=== PATIENT | female | born 1955 | race Hispanic/Latino ===

== ENCOUNTER 2020-02-19 21:16 | Observation (INO) | payer OTHER ==
[2020-02-19 22:16] LABS: Absolute Lymphocytes (CBC) 3.3 K/uL (0.7-4.9); Hematocrit 38.1 % (36.0-45.0); Lymphocytes % 38.3 % (15.3-44.8); RBC Red Blood Cell Count 4.43 M/uL (3.86-4.86)
[2020-02-19 22:30] LABS: ALT/SGPT 23 U/L (12-78); AST/SGOT 19 U/L (15-37); Alkaline Phosphatase 71 U/L (45-117); BUN Blood Urea Nitrogen 18 mg/dL (7-18); Bicarbonate 25 mmol/L (21-32); Bilirubin Direct 0.1 mg/dL (0-0.2); Bilirubin Total 0.3 mg/dL (0.2-1.0); Glucose Level 119 mg/dL (74-106); Magnesium 1.6 mg/dL (1.8-2.4); NT PRO-BNP 19 pg/mL (<125); Potassium 3.6 mmol/L (3.5-5.1); Protein, Total 7.9 g/dL (6.4-8.2); Sodium Level 139 mmol/L (136-145); Troponin (Emerg Dept Use Only) < 0.02 ng/mL (0.0-0.045)
[2020-02-19] MEDS ORDERED: ASPIRIN 81 MG CHEWABLE TABLET ONE (22:40)
--- NOTE | 2020-02-19 23:08 | EDPHYS ---
Physician Documentation [facility] Name: Samreen Rushing Age: 64 yrs Sex: Female : 1955 Arrival Date: 02/19/2020 Time: 21:20 Bed 16 Private MD: ED Physician Magdaleno Hooker HPI: 02/18 22:04 This 64 yrs old Female presents to ER via Ambulatory with complaints of Chest cp Tightness. 22:05 The patient or guardian reports chest pain that is located primarily in the substernal cp area. 22:05 Onset: 1 week(s) ago, intermittent. The pain does not radiate. Associated signs and cp symptoms: Pertinent negatives: abdominal pain, cough, lower extremity pain, lower extremity swelling, palpitations, shortness of breath, syncope. The chest pain is described as a pressure. Duration: The patient or guardian reports multiple episodes, that are intermittent, with no pattern. Modifying factors: the symptoms are aggravated by nothing. Severity of pain: in the emergency department the pain has resolved and did so while in waiting room. Historical: - Allergies: 21:40 No Known Allergies; rr5 - Home Meds: 21:40 clonidine HCl Oral [Active]; Glipizide Oral [Active]; Lisinopril Oral [Active]; Aspirin rr5 Oral [Active]; Metformin Oral [Active]; Lovastatin Oral [Active]; - PMHx: 21:40 Hypertension; Diabetes - NIDDM; Hyperlipidemia; rr5 - PSHx: 21:40 Hysterectomy; vascular surgery; rr5 - Immunization history:: Adult Immunizations up to date. - Social history:: Smoking status: unknown Patient/guardian denies using alcohol, street drugs, tobacco products. ROS: 22:10 Constitutional: Negative for body aches, chills, poor PO intake. cp 22:10 Eyes: Negative for injury, pain, redness, and discharge. cp 22:10 ENT: Negative for drainage from ear(s), ear pain, sore throat, difficulty swallowing, difficulty handling secretions. 22:10 Cardiovascular: Positive for chest pain, Negative for edema, palpitations. 22:10 Respiratory: Negative for cough, shortness of breath, wheezing. 22:10 Abdomen/GI: Negative for abdominal pain, nausea, vomiting, and diarrhea. 22:10 Back: Negative for radiated pain. 22:10 Skin: Negative for rash. 22:10 Neuro: Negative for altered mental status, dizziness, headache, numbness, syncope, weakness. 22:10 All other systems are negative. Exam: 22:15 Constitutional: The patient appears in no acute distress, alert, awake, cp non-diaphoretic, non-toxic, well developed, well nourished. 22:15 Head/Face: Normocephalic, atraumatic. cp 22:15 Eyes: Periorbital structures: appear normal, Conjunctiva: normal, no exudate, no cp injection, Sclera: no appreciated abnormality, Lids and lashes: appear normal, bilaterally. 22:15 ENT: External ear(s): are unremarkable, Nose: is normal, Mouth: is normal, Posterior pharynx: Airway: no evidence of obstruction, patent. 22:15 Neck: ROM/movement: is normal, is supple, without pain, no range of motions limitations, no nuchal rigidity. 22:15 Chest/axilla: Inspection: normal, Palpation: is normal, no crepitus, no tenderness. 22:15 Cardiovascular: Rate: normal, Rhythm: regular, Edema: is not appreciated, JVD: is not appreciated. 22:15 Respiratory: the patient does not display signs of respiratory distress, Respirations: normal, no use of accessory muscles, no retractions, labored breathing, is not present, Breath sounds: are clear throughout, no decreased breath sounds, no stridor, no wheezing. 22:15 Abdomen/GI: Inspection: abdomen appears normal, Bowel sounds: active, all quadrants, Palpation: abdomen is soft and non-tender, in all quadrants. 22:15 Back: pain, is absent, ROM is normal. 22:15 Skin: no rash present. cp 22:15 Neuro: Orientation: to person, place \T\ time. Mentation: is normal, Cerebellar function: is grossly normal, Motor: moves all fours, strength is normal, Sensation: is normal. 23:50 ECG was reviewed by the Attending Physician. rn Vital Signs: 21:35 BP 139 / 88; Pulse 96; Resp 16; Temp 98.6; Pulse Ox 98% ; Weight 65.77 kg; Height 5 ft. rr5 5 in. (165.10 cm); Pain 8/10; 23:30 BP 135 / 85; Pulse 90; Resp 18; Pulse Ox 100% on R/A; mg2 02/19 00:27 BP 133 / 79; Pulse 89; Resp 18; Temp 98.5; Pulse Ox 100% on R/A; mg2 02/18 21:35 Body Mass Index 24.13 (65.77 kg, 165.10 cm) rr5 MDM: 02/18 21:51 Patient medically screened. cp 23:05 The patient was given aspirin in the Emergency Department. cp 23:05 Data reviewed: vital signs, nurses notes, lab test result(s), EKG, radiologic studies, cp plain films, and as a result, I will admit patient. Test interpretation: by ED physician or midlevel provider: ECG. Counseling: I had a detailed discussion with the patient and/or guardian regarding: the historical points, exam findings, and any diagnostic results supporting the discharge/admit diagnosis, lab results, radiology results, the need for further work-up and treatment in the hospital. Physician consultation: Dereck Smith MD was called at 23:05, was contacted at 23:05, regarding admission, to the telemetry unit. patient's condition. 02/18 21:46 Order name: Basic Metabolic Panel; Complete Time: 22:36 cp 02/18 22:36 Interpretation: Normal except: GLUC 119; GFR 73. cp 02/18 21:46 Order name: CBC with Diff; Complete Time: 22:36 cp 02/18 21:46 Order name: LFT's; Complete Time: 22:36 cp 02/18 21:46 Order name: Magnesium; Complete Time: 22:36 cp 02/18 21:46 Order name: NT PRO-BNP; Complete Time: 22:36 cp 02/18 21:46 Order name: PT-INR; Complete Time: 22:36 cp 02/18 21:46 Order name: Troponin (emerg Dept Use Only); Complete Time: 22:36 cp 02/18 22:36 Interpretation: Within normal limits: TROPED < 0.02. cp 02/18 23:18 Order name: Basic Metabolic Panel EDMS 02/18 23:18 Order name: Basic Metabolic Panel ED[facility] 02/18 23:18 Order name: CBC with Automated Diff [facility] 02/18 23:18 Order name: CBC with Automated Diff [facility] 02/18 23:18 Order name: Lipid Profile [facility] 02/18 23:18 Order name: Lipid Profile [facility] 02/18 23:18 Order name: Troponin I [facility] 02/18 21:46 Order name: XRAY Chest (1 view); Complete Time: 02:15 cp 02/18 21:46 Order name: EKG; Complete Time: 21:47 cp 02/18 21:46 Order name: Cardiac monitoring; Complete Time: 22:08 cp 02/18 21:46 Order name: EKG - Nurse/Tech; Complete Time: 22:08 cp 02/18 21:46 Order name: IV Saline Lock; Complete Time: 22:08 cp 02/18 21:46 Order name: Labs collected and sent; Complete Time: 22:08 cp 02/18 21:46 Order name: O2 Per Protocol; Complete Time: 22:08 cp 02/18 21:46 Order name: O2 Sat Monitoring; Complete Time: 22:08 cp 02/18 23:18 Order name: CONS Physician Consult [facility] 02/18 23:18 Order name: Heart Healthy [facility] 02/18 23:18 Order name: Echo with Doppler [facility] 02/18 23:18 Order name: EKG Electrocardiogram [facility] 02/18 23:18 Order name: EKG Electrocardiogram [facility] 02/18 23:18 Order name: Troponin I; Complete Time: 02:15 [facility] 02/18 23:18 Order name: Troponin I [facility] EC:50 Rate is 91 beats/min. Rhythm is regular. QRS [place] is Normal. MD interval is normal. QRS rn interval is normal. QT interval is normal. No Q waves. T waves are Normal. No ST changes noted. Clinical impression: Normal ECG. Interpreted by me. Reviewed by me. Administered Medications: 22:49 Drug: Aspirin Chewable Tablet 324 mg Route: PO; mg2 02/19 00:28 Follow up: Response: No adverse reaction mg2 Disposition: 02:14 Co-signature as Attending Physician, Magdaleno Hooker MD. rn Disposition: 02/19/20 23:08 Hospitalization ordered by Dereck Smith for Observation. Preliminary diagnosis is Chest pain, unspecified. - Bed requested for Telemetry/MedSurg (observation). - Status is Observation. mg2 - Condition is Stable. - Problem is new. - Symptoms have improved. Signatures: Dispatcher [employer] [facility] Josefa Draper RN RN dw Nieto, Roman, MD MD rn John Thakur PA PA cp Waqas Arteaga, LILIANA RN mg2 Federico Vail RN RN rr5 Corrections: (The following items were deleted from the chart) 00:25 02/18 23:08 Hospitalization Ordered by Dereck Smith MD for Observation. Preliminary dw diagnosis is Chest pain, unspecified. Bed requested for Telemetry/MedSurg (observation). Status is Observation. Condition is Stable. Problem is new. Symptoms have improved. cp 02/19 01:19 00:25 02/19/2020 23:08 Hospitalization Ordered by Dereck Smith MD for Observation. mg2 Preliminary diagnosis is Chest pain, unspecified. Bed requested for Telemetry/MedSurg (observation). Status is Observation. Condition is Stable. Problem is new. Symptoms have improved. dw
--- NOTE | 2020-02-19 23:08 | ER ---
Nurse's Notes [facility] Name: Samreen Rushing Age: 64 yrs Sex: Female : 1955 Arrival Date: 02/19/2020 Time: 21:20 Bed 16 Private MD: Diagnosis: Chest pain, unspecified Presentation: 02/18 21:35 Chief complaint: Patient states: chest tightness non radiating,on and off, started a rr5 week ago. but this evening it gets real bad. Coronavirus screen: Proceed with normal triage. Ebola Screen: Patient negative for fever greater than or equal to 101.5 degrees Fahrenheit, and additional compatible Ebola Virus Disease symptoms Patient denies exposure to infectious person. Patient denies travel to an Ebola-affected area in the 21 days before illness onset. Initial Sepsis Screen: Does the patient meet any 2 criteria? No. Patient's initial sepsis screen is negative. Does the patient have a suspected source of infection? No. Patient's initial sepsis screen is negative. Risk Assessment: Do you want to hurt yourself or someone else? Patient reports no desire to harm self or others. Onset of symptoms was February 13, 2020. 21:35 Method Of Arrival: Ambulatory rr5 21:35 Acuity: JAZMYN 3 rr5 21:35 Note denies shortness of breath, cough, fever. rr5 Historical: - Allergies: 21:40 No Known Allergies; rr5 - Home Meds: 21:40 clonidine HCl Oral [Active]; Glipizide Oral [Active]; Lisinopril Oral [Active]; Aspirin rr5 Oral [Active]; Metformin Oral [Active]; Lovastatin Oral [Active]; - PMHx: 21:40 Hypertension; Diabetes - NIDDM; Hyperlipidemia; rr5 - PSHx: 21:40 Hysterectomy; vascular surgery; rr5 - Immunization history:: Adult Immunizations up to date. - Social history:: Smoking status: unknown Patient/guardian denies using alcohol, street drugs, tobacco products. Screenin/08 00:07 Abuse screen: Denies threats or abuse. Denies injuries from another. Nutritional mg2 screening: No deficits noted. Tuberculosis screening: No symptoms or risk factors identified. Fall Risk IV access (20 points). Assessment: 02/18 22:00 General: Appears in no apparent distress. comfortable, Behavior is calm, cooperative. mg2 Pain: Complains of pain in chest Pain does not radiate. Pain currently is 1 out of 10 on a pain scale. Quality of pain is described as aching, Pain began gradually, 1 week ago Is intermittent. Neuro: Level of Consciousness is awake, alert, obeys commands, Oriented to person, place, time, situation. Cardiovascular: Capillary refill < 3 seconds Patient's skin is warm and dry. Respiratory: Airway is patent Respiratory effort is even, unlabored, Respiratory pattern is regular, symmetrical. GI: No signs and/or symptoms were reported involving the gastrointestinal system. : No signs and/or symptoms were reported regarding the genitourinary system. EENT: No signs and/or symptoms were reported regarding the EENT system. Derm: Skin is intact, is healthy with good turgor, Skin is pink, warm \T\ dry. normal. Musculoskeletal: Circulation, motion, and sensation intact. Capillary refill < 3 seconds. 23:00 Reassessment: Patient appears in no apparent distress at this time. Patient and/or mg2 family updated on plan of care and expected duration. Pain level reassessed. Patient is alert, oriented x 3, equal unlabored respirations, skin warm/dry/pink. Vital Signs: 21:35 BP 139 / 88; Pulse 96; Resp 16; Temp 98.6; Pulse Ox 98% ; Weight 65.77 kg; Height 5 ft. rr5 5 in. (165.10 cm); Pain 8/10; 23:30 BP 135 / 85; Pulse 90; Resp 18; Pulse Ox 100% on R/A; mg2 02/19 00:27 BP 133 / 79; Pulse 89; Resp 18; Temp 98.5; Pulse Ox 100% on R/A; mg2 02/18 21:35 Body Mass Index 24.13 (65.77 kg, 165.10 cm) rr5 ED Course: 02/18 21:20 Patient arrived in ED. ag3 21:40 Triage completed. rr5 21:40 Arm band placed on left wrist. rr5 21:46 John Thakur PA is PHCP. cp 21:46 Magdaleno Hooker MD is Attending Physician. cp 22:07 XRAY Chest (1 view) In Process Unspecified. EDMS 22:07 Waqas Arteaga, LILIANA is Primary Nurse. mg2 22:20 Inserted saline lock: 20 gauge in right forearm, using aseptic technique. Blood mg2 collected. 22:31 No provider procedures requiring assistance completed. mg2 23:07 Dereck Smith MD is Hospitalizing Provider. cp 02/19 00:07 Patient has correct armband on for positive identification. athletic monitor on. Pulse mg2 ox on. NIBP on. Noise minimized. Warm blanket given. 00:08 Patient admitted, IV remains in place. Patient maintains SpO2 saturation greater than mg2 95% on room air. Administered Medications: 02/18 22:49 Drug: Aspirin Chewable Tablet 324 mg Route: PO; mg2 02/19 00:28 Follow up: Response: No adverse reaction mg2 Outcome: 02/18 23:08 Decision to Hospitalize by Provider. cp 02/19 01:09 Admitted to Med/surg accompanied by nurse, via wheelchair, room 205, with chart, Report mg2 called to LILIANA Saeed Condition: stable Instructed on the need for admit, Demonstrated understanding of instructions. 01:19 Patient left the ED. mg2 Signatures: Dispatcher [employer] EDMS John Thakur PA PA cp Waqas Arteaga, RN RN mg2 Jolanta Brooks ag3 Federico Vail, RN RN rr5
[2020-02-19] MEDS ORDERED: ACETAMINOPHEN 500 MG TAB PO PRN (23:13)
[2020-02-19] MEDS ORDERED: MORPHINE 4 MG/ML SYR IV PRN (23:13)
[2020-02-19] MEDS ORDERED: ALPRAZOLAM 0.25 MG TABLET PO PRN (23:13)
--- NOTE | 2020-02-19 23:20 | RAD REPORT ---
EXAM DESCRIPTION: RAD - Chest Single View - 02/19/2020 10:07 pm CLINICAL HISTORY: CHEST PAIN Chest pain. COMPARISON: No comparisons FINDINGS: Portable technique limits examination quality. The lungs are grossly clear. The heart is normal in size. No displaced fractures. IMPRESSION: No acute intrathoracic process suspected.
[2020-02-20] MEDS ORDERED: ONDANSETRON 4 MG/2 ML VIAL ONE (00:56)
[2020-02-20 02:00] VITALS: BMI 23.3
--- NOTE | 2020-02-20 05:31 | P.HP ---
Certification for Inpatient Patient admitted to: Observation With expected LOS: <2 Midnights Patient will require the following post-hospital care: None Practitioner: I am a practitioner with admitting privileges, knowledge of patient current condition, hospital course, and medical plan of care. Services: Services provided to patient in accordance with Admission requirements found in Title 42 Section 412.3 of the Code of Federal Regulations Patient History Date of Service: 02/19/20 Reason for admission: Chest pain rule out acute coronary syndrome History of Present Illness: Patient is a 64-year-old female came to the hospital with chest discomfort. Patient has done prior medical history of hypertension and diabetes. Patient also with dyslipidemia. Patient denies any family history. Patient does not have any tobacco history. Patient has not had a stress test. Patient states the pain started yesterday. It has been going on off for the last 24 hr. Pain was mainly in the sternal region. Patient has some shortness of breath as well. Patient came to the hospital for further evaluation. In the emergency room, patient's initial troponin and EKG was unremarkable. Patient be admitted to the hospital for further evaluation. Will get an echocardiogram and a stress test. If these are negative possible discharge home later tomorrow Allergies No Known Allergies Allergy (Verified 02/20/20 03:40) Home Medications: Clonidine HCl [Catapres*] 0.1 mg PO TID 02/20/20 Levothyroxine [Synthroid] 50 mcg PO [id number] 02/20/20 Lovastatin 40 mg PO BEDTIME 02/20/20 Metformin HCl [Glucophage] 850 mg PO TID 02/20/20 glipiZIDE [Glucotrol] 10 mg PO BID 02/20/20 lisinopriL [Prinivil] 40 mg PO DAILY 02/20/20 - Past Medical/Surgical History Has patient received pneumonia vaccine in the past: No Diabetic: Yes -: NIDDM -: HTN -: HLD -: Hypothyroid -: Hysterectomy - Family History Mother Medical History: Diabetes - Social History Smoking Status: Never smoker Alcohol use: No CD- Drugs: No Caffeine use: Yes Place of Residence: Home Review of Systems 10-point ROS is otherwise unremarkable Physical Examination - Vital Signs Temperature: 97.7 F Blood Pressure: 122/59 Pulse: 78 Respirations: 18 Pulse Ox (%): 94 - Physical Exam General: Alert, In no apparent distress, Oriented x3 HEENT: Atraumatic, PERRLA, Mucous membr. moist/pink, EOMI, Sclerae nonicteric Neck: Supple, 2+ carotid pulse no bruit, No LAD, Without JVD or thyroid abnormality Respiratory: Clear to auscultation bilaterally, Normal air movement Cardiovascular: Regular rate/rhythm, Normal S1 S2, No murmurs Gastrointestinal: Normal bowel sounds, Soft and benign, Non-distended, No tenderness Musculoskeletal: No clubbing, No swelling, No tenderness Integumentary: No rashes Neurological: Normal gait, Normal speech, Normal strength at 5/5 x4 extr, Normal tone, Sensation intact, Cranial nerves 3-12 intact, Normal affect Lymphatics: No axilla or inguinal lymphadenopathy - Studies Laboratory Data (last 24 hrs) 02/19/20 22:00: PT 11.8, INR 1.00 02/19/20 22:00: WBC 8.5, Hgb 12.7, Hct 38.1, Plt Count 271 02/19/20 22:00: Sodium 139, Potassium 3.6, BUN 18, Creatinine 0.79, Glucose 119 H, Magnesium 1.6 L, Total Bilirubin 0.3, AST 19, ALT 23, Alkaline Phosphatase 71 Assessment & Plan - Problems (Diagnosis) (1) Chest pain, rule out acute myocardial infarction Current Visit: Yes Status: Acute (2) Hypertension Current Visit: Yes Status: Acute (3) Type 2 diabetes mellitus Current Visit: Yes Status: Acute (4) Dyslipidemia Current Visit: Yes Status: Acute (5) Hypokalemia Current Visit: Yes Status: Acute - Plan 1. Serial troponins and EKG 2. Cardiology consultation 3. Echocardiogram and stress test 4. Anti-platelet therapy, anti coagulation, beta-adrian, statin, and O2 as needed 5. IV morphine for pain 6. Nitro p.r.n. 7. Strict blood pressure and blood sugar control 8. GI and DVT prophylaxis Discharge Plan: Home Plan to discharge in: 24 Hours - Advance Directives Does patient have a Living Will: No Does patient have a Durable POA for Healthcare: No - Code Status/Comfort Care Code Status Assessed: Yes Code Status: Full Code Critical Care: No Time Spent Managing PTS Care (In Minutes): 45
[2020-02-20] MEDS: METOPROLOL TAR 50 MG TAB PO SCH ×2 (06:00→12:08)
[2020-02-20 06:05] LABS: Absolute Lymphocytes (CBC) 3.3 K/uL (0.7-4.9); Basophils % 0.7 % (0-1.3); Hematocrit 37.3 % (36.0-45.0); Lymphocytes % 41.3 % (15.3-44.8); RBC Red Blood Cell Count 4.37 M/uL (3.86-4.86)
[2020-02-20 06:30] LABS: BUN Blood Urea Nitrogen 13 mg/dL (7-18); Bicarbonate 27 mmol/L (21-32); Glucose Level 122 mg/dL (74-106); HDL Cholesterol 38 mg/dL (40-60); LDL Cholesterol, Calculated 44 (<130); Potassium 3.3 mmol/L (3.5-5.1); Sodium Level 142 mmol/L (136-145); Troponin I < 0.02 ng/mL (0.0-0.045)
[2020-02-20 08:01] VITALS: O2SAT 98
[2020-02-20] MEDS ORDERED: POTASSIUM 25 MEQ EFFERV TAB PO ONE (08:10)
[2020-02-20] MEDS ORDERED: glipiZIDE 5 MG TAB PO SCH (08:15)
[2020-02-20] MEDS: METFORMIN HCL 850 MG TAB PO SCH ×2 (08:15→12:08)
--- NOTE | 2020-02-20 08:19 | P.DS ---
Discharge Date: 02/20/20 Disposition: ROUTINE DISCHARGE Discharge Condition: GOOD Reason for Admission: Chest pain rule out acute coronary syndrome Consultations: Cardiology - Problems (1) Chest pain, rule out acute myocardial infarction Current Visit: Yes Status: Acute (2) Hypertension Current Visit: Yes Status: Acute (3) Type 2 diabetes mellitus Current Visit: Yes Status: Acute (4) Dyslipidemia Current Visit: Yes Status: Acute (5) Hypokalemia Current Visit: Yes Status: Acute Brief History of Present Illness: Patient is a 64-year-old female came to the hospital with chest discomfort. Patient has done prior medical history of hypertension and diabetes. Patient also with dyslipidemia. Patient denies any family history. Patient does not have any tobacco history. Patient has not had a stress test. Patient states the pain started yesterday. It has been going on off for the last 24 hr. Pain was mainly in the sternal region. Patient has some shortness of breath as well. Patient came to the hospital for further evaluation. In the emergency room, patient's initial troponin and EKG was unremarkable. Patient be admitted to the hospital for further evaluation. Will get an echocardiogram and a stress test. If these are negative possible discharge home later tomorrow Hospital Course: Patient has done well during hospital stay. Patient's echocardiogram and stress test did not reveal any abnormality. At this time patient is stable for discharge with outpatient follow with PCP for further workup for chest discomfort. Return to the emergency room if patient's symptoms worsen. Notify me if any questions over the weekend. Vital Signs/Physical Exam: Temp Pulse Resp BP Pulse Ox 97.7 F 78 18 122/59 L 94 02/20/20 08:15 02/20/20 08:15 02/20/20 08:15 02/20/20 08:15 02/20/20 08:15 General: Alert, In no apparent distress, Oriented x3 Laboratory Data at Discharge: WBC 7.9 K/uL (4.3-10.9) 02/20/20 05:13 Hgb 12.6 g/dL (12.0-15.0) 02/20/20 05:13 Hct 37.3 % (36.0-45.0) 02/20/20 05:13 Plt Count 251 K/uL (152-406) 02/20/20 05:13 PT 11.8 SECONDS (9.5-12.5) 02/19/20 22:00 INR 1.00 02/19/20 22:00 Sodium 142 mmol/L (136-145) 02/20/20 05:13 Potassium 3.3 mmol/L (3.5-5.1) L 02/20/20 05:13 BUN 13 mg/dL (7-18) 02/20/20 05:13 Creatinine 0.63 mg/dL (0.55-1.3) 02/20/20 05:13 Glucose 122 mg/dL (74-106) H 02/20/20 05:13 Magnesium 1.6 mg/dL (1.8-2.4) L 02/19/20 22:00 Total Bilirubin 0.3 mg/dL (0.2-1.0) 02/19/20 22:00 AST 19 U/L (15-37) 02/19/20 22:00 ALT 23 U/L (12-78) 02/19/20 22:00 Alkaline Phosphatase 71 U/L (45-117) 02/19/20 22:00 Troponin I < 0.02 ng/mL (0.0-0.045) 02/20/20 05:13 Triglycerides 148 mg/dL (<150) 02/20/20 05:13 Cholesterol 112 mg/dL (<200) 02/20/20 05:13 HDL Cholesterol 38 mg/dL (40-60) L 02/20/20 05:13 Cholesterol/HDL Ratio 2.95 02/20/20 05:13 Home Medications: Clonidine HCl [Catapres*] 0.1 mg PO TID 02/20/20 Levothyroxine [Synthroid] 50 mcg PO [id number] 02/20/20 Lovastatin 40 mg PO BEDTIME 02/20/20 Metformin HCl [Glucophage] 850 mg PO TID 02/20/20 glipiZIDE [Glucotrol] 10 mg PO BID 02/20/20 lisinopriL [Prinivil] 40 mg PO DAILY 02/20/20 Patient Discharge Instructions: OK TO DC IV AND DC HOME. FOLLOW-UP WITH PRIMARY CARE PROVIDER IN 1-2 WEEKS. FOLLOW-UP WITH CARDIOLOGY IN 1-2 WEEKS. RETURN TO THE ER IF symptoms worsen. CALL or TEXT DR. AMLODOVAR AT [phone] IF ANY QUESTIONS REGARDING HOSPITAL STAY. PLEASE CALL THE FLOOR AT [phone] IF ANY MEDICATION OR NURSING QUESTIONS. Diet: Heart healthy Activity: Fall precautions Time spent managing pt's care (in minutes): 30
[2020-02-20] MEDS ORDERED: REGADENOSON 0.4 MG/5 ML SYR IV ONE (08:34)
[2020-02-20] MEDS ORDERED: ASPIRIN EC 81 MG TAB PO SCH (09:00)
[2020-02-20] MEDS ORDERED: lisinopriL 20 MG TAB PO SCH (09:00)
[2020-02-20] MEDS: cloNIDine HCL 0.1 MG TAB PO SCH ×2 (09:00→12:07)
[2020-02-20] MEDS ORDERED: ENOXAPARIN 40 MG/0.4 ML SQ SCH (09:00)
--- NOTE | 2020-02-20 10:36 | EKG ---
Test Date: 2020-02-19 Test Time: 21:54:33 [employer]: RR MEASUREMENT RESULTS: Intervals: Rate: 91 FL: 144 QRSD: 68 QT: 348 QTc: 428 [place]: P: 44 FL: 144 QRS: 6 T: 34 INTERPRETIVE STATEMENTS: Normal sinus rhythm Normal ECG No previous ECG available for comparison Electronically Signed On 02-20-20 10:34:44 CDT by Samuel Sheffield
--- NOTE | 2020-02-20 11:13 | ECHO ---
HEIGHT: 5 ft 5 in WEIGHT: 140 lb 0 oz DATE OF STUDY: 02/20/[address]: Dereck Smith MD 2-DIMENSIONAL: YES M.MODE: YES DOPPLER: YES COLOR FLOW: YES TDS: PORTABLE: DEFINITY: BUBBLE STUDY: DIAGNOSIS: CHEST PAIN, RULE OUT ACUTE CORNARY SYNDROME CARDIAC HISTORY: CATHERIZATION: NO SURGERY: NO PROSTHETIC VALVE: NO PACEMAKER: NO MEASUREMENTS (cm) DIASTOLIC (NORMALS) SYSTOLIC (NORMALS) IVSd 1.0 (0.6-1.2) LA Diam 2.3 (1.9-4.0) LVEF 71% LVIDd 3.3 (3.5-5.7) LVIDs 2.0 (2.0-3.5) %FS 39% LVPWd 1.1 (0.6-1.2) Ao Diam 2.4 (2.0-3.7) 2 DIMENSIONAL ASSESSMENT: RIGHT ATRIUM: NORMAL LEFT ATRIUM: NORMAL RIGHT VENTRICLE: NORMAL LEFT VENTRICLE: NORMAL TRICUSPID VALVE: NORMAL MITRAL VALVE: NORMAL PULMONIC VALVE: NORMAL AORTIC VALVE: NORMAL PERICARDIAL EFFUSION: NONE AORTIC ROOT: NORMAL LEFT VENTRICULAR WALL MOTION: NORMAL DOPPLER/COLOR FLOW: NORMAL COMMENTS: NORMAL 2-DIMENSIONAL ECHOCARDIOGRAM WITH DOPPLER. NO WALL MOTION ABNORMALITY. NO EFFUSION. TECHNOLOGIST: WILLOW SAINI
--- NOTE | 2020-02-20 12:16 | RAD REPORT ---
EXAM DESCRIPTION: NM - Rest Stress Cardiac Imaging - 02/20/2020 11:57 am CLINICAL HISTORY: CP Chest pain. COMPARISON: No comparisons TECHNIQUE: The patient was administered approximately 10mCi of Tc 99m Sestamibi prior to resting SPE CT imaging of the heart. The patient was then administered approximately 30 mCi of Tc 99m Sestamibi f ollowing exercise or pharmacologic stress. Multiplanar SPECT images were reviewed. FINDINGS: No stress induced ischemic defect is seen to suggest stress induced ischemia. No fixed def ect is seen to suggest hibernating myocardium or scarred myocardium. The end diastolic volume is 55 ml, the end systolic volume is 19 ml, and the ejection fraction is 66 %. IMPRESSION: No stress induced ischemia.
--- NOTE | 2020-02-20 14:24 | TREADPHA ---
DX: CHEST PAIN Date of Study: 02/20/2020 Ht: 5' 5 " Wt: 140 lb 0 oz Consulting Physician: KLAUDIA MEDICATIONS: TYLENOL, XANAX, ASPIRIN, LIPITOR, CATAPRES, LOVENOX HISTORY: 64 YEAR OLD FEMALE WITH HISTORY OF HYPERTENSION, NON INSULIN DIABETES MELLITUS, HIGH CHOLESTEROL. ADMITTED FOR NON RADIATING CHEST PRESSURE. PHYSICIAL EXAMINATION: RESTING B.P.: 152/99 RESTING H.R.: 90 RESTING EKG: NORMAL PROTOCOL: LEXISCAN EXERCISE TIME: 3:30 B.P. AT PEAK STRESS: 200/92 IMPRESSION: LEXISCAN STRESS TEST PERFORMED. CARDIOLITE INJECTED PER PROTOCOL. NO SUPRAVENTRICULAR TACHYCARDIA OR VENTRICULAR TACHYCARDIA NOTED. OCCASIONAL PREMATURE VENTRICULAR COMPLEXES NOTED. PATIENT DENIED CHEST PAIN. RESPIRATORY EVEN AND NON LABORED. TOLERATED WELL. REPEAT BLOOD PRESSURE 180/90. SEE NUCLEAR MEDICINE REPORT.
[2020-02-20 17:48] VITALS: BP 153/80; TEMP 98.1
[2020-02-20] MEDS ORDERED: ATORVASTATIN 20 MG TAB PO SCH (21:00)
[2020-02-20] MEDS ORDERED: HOME MED 1 EA UNK (Lovastatin [Lovastatin] 40 MG) PO SCH (21:00)
[2020-02-21] MEDS ORDERED: LEVOTHYROXINE SOD 0.05 MG TABLET PO SCH (06:00)
--- NOTE | 2020-02-21 06:27 | CON ---
Date of Consultation: 02/20/2020 Reason For Consultation: Chest pain. History Of Present Illness: Ms. Rushing is a 64-year-old woman. She has had chest pain for approx imately a week. She described the pain that goes up and down her left side of the chest that is emmett p, stabbing, occasional, radiate to the left neck. No nausea, vomiting, diaphoresis, PND, orthopnea, pedal edema, palpitation, or syncope. Her pain is not exertional. It is not related to food, body position, or time of the day. She has not had any fever or chills or cough. Her workup by the time I saw her was unremarkable except for magnesium 1.6. Her EKG was negative. Her chest x-ray was nega tive. Past Medical History: Include hypertension, diabetes, dyslipidemia, hypothyroidism. Allergies: NONE. Review of Systems: Negative. Social History: Negative. Family History: Negative. Medications: At home include clonidine, Synthroid, lovastatin, metformin, lisinopril, and Glucotrol. Physical Examination: Vital Signs: Stable. She was afebrile. HEENT: Negative. Neck: Supple without any bruit, lymphadenopathy, JVD, or thyromegaly. Chest: Clear to auscultation and percussion. Cardiac: Revealed a regular rhythm and rate. No murmurs, gallops, or rubs. Abdomen: Benign. Extremities: Revealed no clubbing, cyanosis, or edema. Neurological: She was nonfocal. Skin: Dry and intact. Diagnostic Data: Mentioned earlier. Impression And Plan: Atypical chest pain in a patient with multiple cardiac risk factors including h ypertension, diabetes, and dyslipidemia. Her blood pressure, diabetes, and hypertension are well con trolled. She has ruled out for an DE. Her magnesium is 1.6 which was supplemented. Echocardiogram which was done today was normal. Lexiscan which was done today was normal. I think her symptoms are most likely pleuritic or musculoskeletal in nature. She can go home whenever it is okay with Dr. Rasheed ferreira. I will be happy to see her in the office as an outpatient if her symptoms persist or worsens. GLADYS/TRINITYL Voice ID: [id number] Report ID: [id number]
== END 2020-02-20 15:55 | disposition home or self-care (01) ==
LOC: ER 21:16 → ERHOLD 23:27 → 2ND 02-20 01:10
PROVIDERS: ADMIT Hospitalist; ATTEND Hospitalist
DX: R07.89 Other chest pain (principal); I10 Essential (primary) hypertension; R06.02 Shortness of breath; E87.6 Hypokalemia; E11.9 Type 2 diabetes mellitus without complications; E78.5 Hyperlipidemia, unspecified; E03.9 Hypothyroidism, unspecified; Z83.3 Family history of diabetes mellitus
CPT/HCPCS: 93005 ×2; 93017; 93306; 85025 ×2; 80048 ×2; 36415; 83735; 85610; 80061; 82947 ×2; 80076; 84484 ×3; 83880; 71045; 78452; 99285; J1650; J2785; J2405; A9500; G0378 ×2